=== PATIENT | female | born 1985 | race Caucasian/White ===

== ENCOUNTER 2019-08-21 15:27 | Emergency (ER) | payer MEDICAID ==
[~2019-08-21] VITALS: Ht 152.4 cm; Wt 63.5 kg
[2019-08-21 15:59] VITALS: BP_SYST 167
--- NOTE | 2019-08-21 17:49 | NUR ---
Patient to ER bed 5 to gown for evaluation. Side rails up.
--- NOTE | 2019-08-21 17:52 | NUR ---
Patient arrived in the ED c/o sore throat for a week. Denied any chest pain or shortness of breath. Denied any fevers or chills. Patient is alert and oriented x4, respirations even and unlabored, speaking in full sentences and ambulating with a steady gait. VSS, pain level 7/10. Informed of the approximate wait time. Instructed to notify ED staff for any changes in condition or worsening of symptoms while waiting to be seen by the provider. Patient verbalized understanding.
--- NOTE | 2019-08-21 17:55 | NUR ---
ER AYLIN Yang at bedside examining patient.
--- NOTE | 2019-08-21 18:08 | NUR ---
Urine specimen collected and urine done.
[2019-08-21] MEDS ORDERED: IBUPROFEN 800 MG TABLET PO ONE (18:15)
[2019-08-21] MEDS ORDERED: PENICILLIN G BENZATHINE 1.2 MMU/2 ML SYR IM ONE (18:15)
[2019-08-21] MEDS ORDERED: DEXAMETHASONE SOD PHOSPHATE 10 MG/ML VIAL IM ONE (18:15)
--- NOTE | 2019-08-21 18:20 | NUR ---
Administered Motrin PO, Decadron and Bicillin IM as ordered by Elena Yang ([employer]). Patient tolerated the medication well. See eMAR for details.
[2019-08-21 18:49] VITALS: BP_SYST 118
--- NOTE | 2019-08-21 18:50 | NUR ---
Patient given written and verbal discharge instructions and verbalizes understanding. ER MD discussed with patient the results and treatment provided. Patient in stable condition. ID arm band removed. Rx of MOTRIN given. Patient educated on pain management and to follow up with PMD. Pain Scale 0/10. Opportunity for questions provided and answered. Medication side effect fact sheet provided.
== END 2019-08-21 18:49 | disposition home or self-care (01) ==
LOC: SED 15:27
DX: J02.9 Acute pharyngitis, unspecified (principal); R03.0 Elevated blood-pressure reading, without diagnosis of hypertension; F17.210 Nicotine dependence, cigarettes, uncomplicated; Z71.6 Tobacco abuse counseling
CPT/HCPCS: 81025; 96372; 99283; J0561; J1100